=== PATIENT | female | born 1975 | race African-American/Black ===

== ENCOUNTER → 2017-04-07 | Day surgery (SDC) | payer OTHER ==
--- NOTE | 2017-04-10 11:32 | OP ---
DATE OF OPERATION: 04/07/2017 PREOPERATIVE DIAGNOSIS: Right breast mass, 4 o'clock, 2 cm from the nipple. POSTOPERATIVE DIAGNOSIS: Right breast mass, 4 o'clock, 2 cm from the nipple. PROCEDURE: Right ultrasound-guided core biopsy with clip placement. ANESTHESIA: Local. ATTENDING PHYSICIAN: Nadja Tena MD ESTIMATED BLOOD LOSS: Minimal. COMPLICATIONS: None. PROCEDURE: Patient was made aware of the risks and benefits of the procedure and consented. She was placed in a supine position. Under sterile conditions with 1% lidocaine for local anesthesia, a small monroe was made in the skin using a 13-gauge suction biopsy via inferolateral approach, under ultrasound guidance, multiple cores were obtained and submitted to Pathology. Likewise, under ultrasound guidance, a clip was placed into the biopsy region. Well tolerated by patient. Steri-Strips and sterile bandage were applied. Postprocedure mammogram was performed. Will contact with results. Hank [id number]
--- NOTE | 2017-04-10 15:22 | PATH ---
Surgical Pathology Report Patient Name: NNEKA CHEEMA Med. Rec. #: [id number] /Age/Gender: 1975 (Age: 41) / F Account: [id number] Location: [facility] RADIOLOGY U Taken: 04/07/2017 Received: 04/07/2017 Reported: 04/10/2017 Physicians: Hank Zleaya M.D. Specimen(s) Received RIGHT BREAST 4:00 7CM FNCORE BIOPSY Clinical History Nonpalpable lesion Ultrasound findings: Suspicious Final Diagnosis BREAST, RIGHT, 4:00, 7 CM FN, CORE BIOPSY: BENIGN BREAST TISSUE SHOWING FIBROADENOMATOID CHANGE AND FIBROCYSTIC CHANGES INCLUDING MICROCYST FORMATION AND FOCAL APOCRINE METAPLASIA. Electronically Signed Sabrina Pate M.D. Gross Description Received in formalin labeled "right breast biopsy 4:00, 7cmfn," is a 1.1 x 0.7 x 0.2 cm aggregate of multiple vizcarra-yellow, irregular to cylindrical portions of fibroadipose tissue. The formalin and filtered and the specimen is entirely submitted in one cassette. Time to formalin fixation: < 1 minute Total formalin fixation time: Approximately 9 hours. /04/07/201704/07/2017
== END | disposition home or self-care (01) ==
LOC: FRADUS-SUR 13:03
PROVIDERS: ATTEND Surgery
PROC: 0HBT3ZX Excision of Right Breast, Percutaneous Approach, Diagnostic (ICD-10-PCS; principal; 2017-04-07)
DX: N60.11 Diffuse cystic mastopathy of right breast (principal); N63.14 Unspecified lump in the right breast, lower inner quadrant; N64.89 Other specified disorders of breast
CPT/HCPCS: 19083; 87899; 88305-TC; A4648; G0206-TC

== ENCOUNTER 2018-06-28 06:08 | Inpatient (IN) | payer OTHER ==
[2018-06-20 13:59] VITALS: BMI 28.3
[2018-06-28] MEDS ORDERED: PHENAZOPYRIDINE HCL 100 MG TABLET (FP) PO ONE ×2 (07:00→09:24)
[2018-06-28] MEDS ORDERED: DEXAMETHASONE SOD PHOSPHATE/PF 10 MG/ML SDV ONE (09:20)
[2018-06-28] MEDS ORDERED: ROPIVACAINE HCL 0.5% 30ML VIAL ONE (09:20)
[2018-06-28] MEDS ORDERED: MIDAZOLAM HCL 2 MG/2 ML SINGLE DOSE VIAL ONE ×2 (09:21)
[2018-06-28] MEDS ORDERED: CEFAZOLIN 2 GM/D5W 2 GM/50 ML ML IVPB ONE (09:24)
[2018-06-28] MEDS ORDERED: ceFAZolin SODIUM 1 GM VIAL ONE ×2 (09:26→10:05)
[2018-06-28] MEDS ORDERED: PHENAZOPYRIDINE HCL 100 MG TABLET (FP) ONE (09:27)
[2018-06-28] MEDS ORDERED: DEXAMETHASONE SOD PHOSPHATE 4 MG/1 ML VIAL ONE (10:05)
[2018-06-28] MEDS ORDERED: LIDOCAINE HCL/PF 2% SDV 5ML VIAL ONE (10:05)
[2018-06-28] MEDS ORDERED: SODIUM CHLORIDE 0.9% P/F 10 ML VIAL IJ ONE (10:05)
[2018-06-28] MEDS ORDERED: PROPOFOL 20 ML ONE (10:06)
[2018-06-28] MEDS ORDERED: KETAMINE HCL 200 MG/20 ML VIAL ONE (10:06)
[2018-06-28] MEDS ORDERED: ROCURONIUM BROMIDE 50 MG/5 ML VIAL ONE (10:06)
[2018-06-28] MEDS ORDERED: DESFLURANE GAS 240 ML BOTTLE IH ONE (10:44)
[2018-06-28] MEDS ORDERED: DEXMEDETOMIDINE HCL 200 MCG/2 ML IVPB ONE (10:44)
[2018-06-28] MEDS ORDERED: ceFAZolin SODIUM 1 GM VIAL IVPB ONE (11:24)
[2018-06-28] MEDS ORDERED: KETOROLAC TROMETHAMINE 30 MG/1 ML VIAL ONE (11:55)
[2018-06-28] MEDS ORDERED: GLYCOPYRROLATE 0.2 MG/1 ML VIAL ONE (11:55)
[2018-06-28] MEDS ORDERED: NEOSTIGMINE METHYLSULFATE 0.5 MG/ML - 10 ML MDV ONE (11:56)
--- NOTE | 2018-06-28 12:24 | HP ---
History & Physical Update - History History: No Change - Physical Physical: No Change - Assessment Assessment: No Change - Plan Plan: No Change (No change in HP)
--- NOTE | 2018-06-28 12:26 | OP ---
Operative Note - Note: Operative Date: 06/28/18 Pre-Operative Diagnosis: Leiomyomatous Uterus. Abdominal pain Operation: Abdominal Total Hystereectomy. left salpingectomy Findings: uterus 12 cm Post-Operative Diagnosis: Same as Pre-op Surgeon: Haylie Ruff Taker Off Drying Kiln: Mirian Hui Anesthesia: General Estimated Blood Loss (mls): 100 Operative Report Dictated: Yes
[2018-06-28] MEDS ORDERED: DOCUSATE SODIUM 100 MG CAPSULE (FP) PO PRN (12:39)
[2018-06-28] MEDS ORDERED: IBUPROFEN 800 MG/8 ML IJ IVPB PRN (12:39)
[2018-06-28] MEDS ORDERED: ONDANSETRON 4 MG/2 ML VIAL IVPUSH PRN (12:39)
[2018-06-28] MEDS ORDERED: ACETAMINOPHEN 325 MG TABLET (FP) PO PRN (12:39)
[2018-06-28] MEDS ORDERED: BISACODYL 5 MG TABLET.DR (FP) PO PRN (12:39)
--- NOTE | 2018-06-28 13:11 | SURG ---
Surgery Shelver Note Shelver: Mirian Hui PA-C Date of Service: 06/28/18 Diagnosis: leiomyomatous uterus Procedure: Abdominal Total Hystereectomy. left salpingectomy I was present for the entirety of the operative procedure. For further detail, please refer to operative report. Visit type - Case Type Case Type: Scheduled - Emergency Emergency Visit: No - New patient This patient is new to me today: Yes Date on this admission: 06/28/18
[2018-06-28] MEDS ORDERED: oxyCODONE HCL 5 MG TABLET PO PRN ×2 (13:28)
[2018-06-28] MEDS: IBUPROFEN 800 MG/8 ML IJ IVPB PRN (16:15)
[2018-06-28] MEDS: CEFAZOLIN 1 GM/D5W 1 GM/50 ML BAG IVPB SCH (17:46)
[2018-06-28 18:51] LABS: HEMATOCRIT 27.9 % (32.4-45.2); HEMOGLOBIN 9.4 GM/dL (10.7-15.3); MCH 25.5 pg (25.7-33.7); MCHC 33.6 g/dl (32.0-36.0); MEAN PLT VOLUME 8.2 fl (7.5-11.1); PLATELET COUNT 325 K/MM3 (134-434); RBC 3.67 M/mm3 (3.60-5.2); RDW 14.6 % (11.6-15.6); WHITE BLOOD COUNT 10.3 K/mm3 (4.0-10.0)
[2018-06-28] MEDS: LACTATED RINGERS SOLUTION 1,000 ML/1,000 ML INFUS.BAG IV SCH ×2 (19:16→22:03)
[2018-06-28 19:21] LABS: ANION GAP 10 MMOL/L (8-16); BLOOD UREA NITROGEN 7 mg/dL (7-18); CALCIUM 8.6 mg/dL (8.5-10.1); CHLORIDE 102 mmol/L (98-107); CO2 23 mmol/L (21-32); CREATININE 0.7 mg/dL (0.55-1.3); GLUCOSE,RANDOM 121 mg/dL (74-106); SODIUM 135 mmol/L (136-145)
[2018-06-28] MEDS: ACETAMINOPHEN 325 MG TABLET (FP) PO PRN (19:42)
[2018-06-28] MEDS: IBUPROFEN 600 MG TABLET (FP) PO PRN (19:43)
[2018-06-28] MEDS: oxyCODONE HCL 10 MG SUSTAINED ACTING TABLET PO SCH (21:26)
[2018-06-29] MEDS: IBUPROFEN 800 MG/8 ML IJ IVPB PRN (00:15)
[2018-06-29] MEDS: IBUPROFEN 600 MG TABLET (FP) PO PRN ×5 (00:31→23:50)
[2018-06-29] MEDS: ACETAMINOPHEN 325 MG TABLET (FP) PO PRN ×5 (00:31→23:49)
[2018-06-29] MEDS: CEFAZOLIN 1 GM/D5W 1 GM/50 ML BAG IVPB SCH (02:34)
[2018-06-29] MEDS: LACTATED RINGERS SOLUTION 1,000 ML/1,000 ML INFUS.BAG IV SCH (06:37)
[2018-06-29 07:28] LABS: HEMATOCRIT 26.3 % (32.4-45.2); HEMOGLOBIN 8.6 GM/dL (10.7-15.3); MCH 24.9 pg (25.7-33.7); MCHC 32.8 g/dl (32.0-36.0); MEAN CELL VOLUME 75.9 fl (80-96); PLATELET COUNT 309 K/MM3 (134-434); RBC 3.46 M/mm3 (3.60-5.2); RDW 14.5 % (11.6-15.6); WHITE BLOOD COUNT 9.8 K/mm3 (4.0-10.0)
[2018-06-29 07:57] LABS: ANION GAP 9 MMOL/L (8-16); BLOOD UREA NITROGEN 7 mg/dL (7-18); CALCIUM 8.7 mg/dL (8.5-10.1); CHLORIDE 104 mmol/L (98-107); CO2 23 mmol/L (21-32); CREATININE 0.8 mg/dL (0.55-1.3); GLUCOSE,RANDOM 120 mg/dL (74-106); POTASSIUM 3.9 mmol/L (3.5-5.1); SODIUM 136 mmol/L (136-145)
--- NOTE | 2018-06-29 10:06 | PN ---
Progress Note (short form) - Note Progress Note: POD#1 PT oob and ambulating this am. Pain controlled with tylenol and motrin. Minimal vaginal bleeding. Tolerated clears overnight. Vital Signs Period Temp Pulse Resp BP Sys/Landis Pulse Ox Last 24 Hr 97.5 F-99.6 F 61-85 14-20 116-151/61-85 96-100 GEN: A&0x3, NAD ABD: soft, non-distended, inc tenderness. Inc c/d/i with steristrips. No ecchymosis/drainage or erythema to wound. LE: TEDs in place CBC, BMP 02/01/19 06:45 02/01/19 06:45 A/p: 43 yo female s/p abdominal hysterectomy and left salpingectomy, POD#1 Continue clears as tolerated OOB and ambulate DVT ppx with lovenox SQ Tylenol/motrin as needed for pain Incentive spirometer Mont[place] removed this am for TOV
[2018-06-29] MEDS: ENOXAPARIN NA (PORCINE) 40 MG/0.4 ML DISP.SYRIN SQ SCH (10:28)
[2018-06-29] MEDS: oxyCODONE HCL 10 MG SUSTAINED ACTING TABLET PO SCH ×2 (10:30→22:31)
[2018-06-29] MEDS ORDERED: oxyCODONE HCL 5 MG TABLET PO PRN ×2 (12:39)
--- NOTE | 2018-06-30 06:53 | OP ---
DATE OF OPERATION: 06/28/2018 PREOPERATIVE DIAGNOSIS: Leiomyomatous uterus, abdominal pain. OPERATION: Total abdominal hysterectomy and left salpingectomy. POSTOPERATIVE DIAGNOSIS: Leiomyomatous uterus, abdominal pain. SURGEON: Grace Ruff MD [employer]OYEE [employer] RN: IGNACIO Butler ANESTHESIA: General. DESCRIPTION OF PROCEDURE: The patient was taken to the operating room. Patient was placed in supine position, prepped and draped in the usual sterile fashion. After general anesthesia had been given, a time-out was performed in accordance with hospital regulation. Pfannenstiel skin incision was made with the scalpel. Cautery was then used to go through layers of abdominal wall to the level of the fascia. The fascia was cut in the midline. Cautery was then used to open the fascia in smiling fashion. Kochers were then used to bluntly and sharply dissect the rectus muscle off the fascia. Muscle was split in the midline. Peritoneal cavity was then entered and carried upward and downward. The bowel was packed out of the operative field. The uterus was exteriorized. Round ligament was identified, clamped, and cut on the left side using LigaSure. Utero-ovarian ligament was identified, clamped, and cut. Fallopian tubes were identified, clamped, cut, and removed. Uterine artery was skeletonized, and vesicouterine reflection was then entered and carried bluntly and dissected out of the operative field. Uterine artery on the left was clamped and cut. Cardinal ligaments were identified, clamped, and cut down to the level of the cervix. The same procedure was repaired on the other side. Ovaries were noted to be normal. No tube was noted on the right. The vagina was then entered, and Rob were then used to cut the vagina away from the cervix. The cervix and uterus was then submitted to Pathology. A 2-0 V-Lock suture was then used to close the vaginal cuff. Hemostasis was achieved using cautery and clamping of the vessels and suture. Hemostasis was achieved. Interceed was placed on the cuff. Packing was then removed. Sweep was done. Pack count was noted to be normal. Ureters were identified and found to have peristalsis. Hemostasis was achieved in all pedicles. The peritoneum was then closed using 0 Vicryl suture in continuous stitch. The fascia was then closed using 0 Vicryl in 2 parts. The skin was then closed using 3-0 Vicryl in subcuticular fashion. The wound was washed and dressed. The patient had tolerated the procedure well and was taken to recovery room in stable condition. Estimated blood loss was 100 mL. GRACE RUFF M.D. [id number]
--- NOTE | 2018-06-30 07:22 | DS ---
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 salpingectomy Hospital Course: Unremarkable Condition: Good - Instructions Diet, Activity, Other Instructions: Dr. 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 You may walk unlimited natan of and climb stairs. You may resume driving the car when you feel safe and comfortable behind the wheel. No sexual activity as instructed by Dr. Ruff. Wound care If you have a bandage, leave it on, and keep dry for 48-72 hours. After that time discard the outer bandage. If they are tapes on the skin under the out of bandage leave them in place. They will peel off in the next 7 to 10 days. Do Not Peel them off. You may shower the day after surgery. If there are tapes present on the skin, you may shower over them. Diet There are no dietary restrictions. Eat healthy, high-fiber foods. Drink 6 to 8 glasses of liquid each day. This will assist in keeping your bowels are regular. Pain management You may take Tylenol or acetaminophen or Ibuprofen (for example, Motrin, Advil etc.) from my pain prescription medication is ordered should be taken as prescribed for moderate to severe pain. Call Dr. Ruff for any of the following: Severe pain not relieved by medication Fever of 101 or higher Excessive bleeding or drainage on dressing Inability to urinate Call the office at [phone] for an appointment in seven days. This report was requested by: Mirian Hui | Reference #: [id number] Referrals: Haylie Ruff MD [Staff Physician] - Disposition: HOME - Home Medications Comprehensive Discharge Medication List: Ambulatory Orders Ascorbic Acid/Vitamin E/Biotin [Hair Skin Nails-Biotin Gummies] 1 each PO DAILY 06/20/18 Pediatric Multivit No.68/Iron [Centrum Kids Chew Tab] 18 mg PO DAILY 06/20/18 Ibuprofen [Motrin -] 600 mg PO QID #28 tablet 06/28/18 Oxycodone HCl 5 mg PO Q6H PRN #30 tablet MDD 8 06/28/18"
[2018-06-30 08:16] VITALS: BP 121/90; PULSE 92; TEMP 98.2
[2018-06-30] MEDS: IBUPROFEN 600 MG TABLET (FP) PO PRN (08:34)
[2018-06-30] MEDS: ACETAMINOPHEN 325 MG TABLET (FP) PO PRN (08:35)
[2018-06-30] MEDS: ENOXAPARIN NA (PORCINE) 40 MG/0.4 ML DISP.SYRIN SQ SCH (09:35)
--- NOTE | 2018-07-02 16:19 | PATH ---
Surgical Pathology Report Patient Name: NNEKA TEMPLE [facility]. Rec. 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 Specimen(s) Received UTERUS CERVIX + LEFT TUBE Clinical History The Fibroids Final Diagnosis UTERUS, CERVIX, LEFT TUBE, HYSTERECTOMY AND LEFT SALPINGECTOMY: LEIOMYOMATA. ADENOMYOSIS. PROLIFERATIVE ENDOMETRIUM. CERVIX WITH MILD NONSPECIFIC CHRONIC INFLAMMATION, SQUAMOUS METAPLASIA, AND NABOTHIAN CYST. LEFT FALLOPIAN TUBE WITH NO DIAGNOSTIC ABNORMALITIES. Electronically Signed Vanessa Lentz M.D. Gross Description Received in formalin labeled "uterus, cervix and left tube," is a 638 g uterus with an attached cervix and an attached left fallopian tube. The specimen measures 12 cm from superior to inferior, 12 cm from anterior to posterior and 8.5 cm from left to right. The serosa is vizcarra-perez and smooth with focal subserosal nodules. The attached cervix measures 3 cm in length and averages 3 cm in diameter. The ectocervix is vizcarra, smooth and glistening. The endocervix is unremarkable. The endometrial cavity measures 7 cm in length and 2.5 cm from cornu to cornu. The endometrium is vizcarra and lush, measuring up to 0.4 cm in length. The myometrium displays multiple intramural nodules, measuring up to 6.2 cm in greatest dimension. The cut surface of the intramural and subserosal nodules is vizcarra and rubbery with whorled architecture. No areas of hemorrhage or necrosis are identified. The remaining myometrium is vizcarra and measures up to 6.5 cm in thickness. The left fimbriated fallopian tube measures 8 cm in length. The outer surface is vizcarra-tran and smooth. Sectioning reveals an unremarkable lumen. Flight Test Engineer sections are submitted in 14 cassettes as follows: 1-anterior cervix; 2-posterior cervix; 6-4-qlejkyia endomyometrium; 0-5-lmgowtlkh endomyometrium; 7-subserosal nodules; 1-55-txuzkmy intramural nodule; 72-08-qohipipjdc intramural nodules; 13-left fallopian tube fimbria; 14-cross sections of left fallopian tube. /06/29/2018 saudi06/29/2018
== END 2018-06-30 09:40 | disposition home or self-care (01) | DRG 743 ==
LOC: JSAMEDAYSX 06:08 → J3W 15:15
PROVIDERS: ADMIT Obstetrics & Gynecology; ATTEND Obstetrics & Gynecology
PROC: 0UT60ZZ Resection of Left Fallopian Tube, Open Approach (ICD-10-PCS; 2018-06-28)
PROC: 0UT90ZZ Resection of Uterus, Open Approach (ICD-10-PCS; principal; 2018-06-28 11:00)
DX: D25.9 Leiomyoma of uterus, unspecified (principal); N80.0 Endometriosis of uterus; N88.8 Other specified noninflammatory disorders of cervix uteri; R10.9 Unspecified abdominal pain
CPT/HCPCS: 36415; 80048; 84703; 85027; 86850; 86900; 86901; 88307-TC; 94010; 94760

== ENCOUNTER 2022-02-08 15:20 | Emergency (ER) | payer OTHER ==
[2022-02-08 15:54] VITALS: BP 139/59; PULSE 110; RESP 17; TEMP 98; BMI 29.5
[2022-02-08] MEDS ORDERED: ACETAMINOPHEN 1000 MG/100 ML BAG IVPB ONE (17:39)
[2022-02-08] MEDS ORDERED: SODIUM CHLORIDE 0.9% 500 ML INFUS.BAG IV ONE (17:39)
[2022-02-08] MEDS ORDERED: ACETAMINOPHEN INJECTION 100 ML IVPB ONE (17:51)
[2022-02-08 19:52] LABS: BASO % 0.4 % (0-2.0); HEMATOCRIT 38.5 % (32.4-45.2); HEMOGLOBIN 12.4 GM/dL (10.7-15.3); LYMPH % 10.7 % (8-40); MCH 26.8 pg (25.7-33.7); MCHC 32.3 g/dl (32.0-36.0); MEAN CELL VOLUME 82.9 fl (80-96); MEAN PLT VOLUME 9.2 fl (7.5-11.1); MONO % 5.5 % (3.8-10.2); NEUT % 83.4 % (42.8-82.8); PLATELET COUNT 290 10^3/uL (134-434); RBC 4.65 M/mm3 (3.60-5.2); WHITE BLOOD COUNT 11.7 K/mm3 (4.0-10.0)
[2022-02-08 20:16] LABS: BLOOD UREA NITROGEN 9.1 mg/dL (7-18); CALCIUM 9.8 mg/dL (8.5-10.1)
[2022-02-08 20:19] LABS: CREATININE 0.8 mg/dL (0.55-1.3)
[2022-02-08 20:20] LABS: TOT PROT 8.3 g/dl (6.4-8.2)
[2022-02-08 20:21] LABS: BILIRUBIN,TOTAL 0.8 mg/dL (0.2-1)
== END 2022-02-09 00:32 | disposition home or self-care (01) ==
LOC: JER 15:20
PROC: 3E0333Z Introduction of Anti-inflammatory into Peripheral Vein, Percutaneous Approach (ICD-10-PCS; principal; 2022-02-08)
DX: K57.92 Diverticulitis of intestine, part unspecified, without perforation or abscess without bleeding (principal)
CPT/HCPCS: 36415; 74177-TC; 80053; 80061; 83690; 84703; 85025; 86850; 86900; 86901; 93005; 93010; 99285-25; C9803-CS; Q9967; U0003; U0005